=== PATIENT | male | born 1965 | race Caucasian/White ===

== ENCOUNTER 2016-06-05 18:33 | Emergency (ER) | payer SELFPAY | END 2016-06-05 19:40 | disposition home or self-care (01) | LOC: ER 18:33 | DX: S80.811A Abrasion, right lower leg, initial encounter (principal); S60.511A Abrasion of right hand, initial encounter; S50.311A Abrasion of right elbow, initial encounter; F17.210 Nicotine dependence, cigarettes, uncomplicated; V29.9XXA Motorcycle rider (driver) (passenger) injured in unspecified traffic accident, initial encounter | CPT/HCPCS: 90471 ==